=== PATIENT | male | born 1970 ===

== ENCOUNTER 2018-02-14 02:12 | Emergency (ER) | payer SELFPAY ==
[2018-02-14 02:24] VITALS: BMI 19.3
[2018-02-14 02:36] VITALS: BP 111/54; PULSE 75; RESP 18; TEMP 98.6; O2SAT 99
--- NOTE | 2018-02-14 02:36 | ED PDOC ---
HPI: Psych/Substance Abuse Time Seen by Provider: 02/14/18 02:25 Chief Complaint (Nursing): Substance Abuse Chief Complaint (Provider): Alcohol Intoxication History Per: Patient, EMS (Police) History/Exam Limitations: no limitations Onset/Duration Of Symptoms: Days (x1) Current Symptoms Are (Timing): Still Present Additional Complaint(s): 47 year old male, with no significant past medical history, brought by police for official blood kit. Patient is intoxicated and admitted to police that he was drinking, and arrested for drinking and driving. Patient offers no complaints at this time. Past Medical History Reviewed: Historical Data, Nursing Documentation, Vital Signs - Medical History PMH: No Chronic Diseases - Surgical History Other surgeries: Gastric sleeve - Family History Family History: States: Unknown Family Hx - Social History Current smoker - smoking cessation education provided: No Alcohol: Occasional Drugs: Denies - Allergies Allergies/Adverse Reactions: Allergies Allergy/AdvReac Type Severity Reaction Status Date / Time Penicillins Allergy RASH Verified 02/14/18 02:24 Review of Systems ROS Statement: Except As Marked, All Systems Reviewed And Found Negative Physical Exam - Reviewed Nursing Documentation Reviewed: Yes Vital Signs Reviewed: Yes - Physical Exam Appears: Positive for: No Acute Distress Head Exam: Positive for: ATRAUMATIC, NORMOCEPHALIC Skin: Positive for: Warm, Dry Eye Exam: Positive for: EOMI, PERRL ENT: Negative for: Pharyngeal Erythema, Tonsillar Exudate Neck: Positive for: Painless ROM, Supple Cardiovascular/Chest: Positive for: Regular Rate, Rhythm. Negative for: Murmur Respiratory: Positive for: Normal Breath Sounds. Negative for: Respiratory Distress Gastrointestinal/Abdominal: Positive for: Soft. Negative for: Tenderness Back: Positive for: Normal Inspection. Negative for: Decreased ROM Extremity: Positive for: Tenderness. Negative for: Deformity Lymphatic: Negative for: Adenopathy Neurologic/Psych: Positive for: Oriented (x2). Negative for: Alert (sleepy, but arousable to voice; mildly slurred speech), Motor/Sensory Deficits Medical Decision Making Medical Decision Making: Impression: 47 year old here for alcohol intoxication under police custody Plan: Patient stable for discharge after blood kit obtained by nurse. Scribe Attestation: Documented by Norberto Grider, acting as a scribe for Misty Dang MD. Provider Scribe Attestation: All medical record entries made by the Scribe were at my direction and personally dictated by me. I have reviewed the chart and agree that the record accurately reflects my personal performance of the history, physical exam, medical decision making, and the department course for this patient. I have also personally directed, reviewed, and agree with the discharge instructions and disposition. Disposition - Clinical Impression Clinical Impression: Alcohol intoxication - Disposition Disposition: Discharged/Transfer to Law Enforcement Disposition Time: 03:00 Condition: STABLE Additional Instructions: MEDICALLY AND PSYCHIATRICALLY STABLE FOR INCARCERATION Instructions: Alcohol Abuse and Alcoholism (DC) Forms: [email or web address] (Syrian)
== END 2018-02-14 04:30 ==
LOC: H.ER 02:12
DX: F10.129 Alcohol abuse with intoxication, unspecified (principal); Z88.0 Allergy status to penicillin